=== PATIENT | male | born 1995 | race African-American/Black ===

== ENCOUNTER 2017-02-28 19:19 | Inpatient (IN) | payer OTHER ==
[~2017-02-28] VITALS: Ht 190.5 cm; Wt 73.9 kg
[2017-02-28] MEDS ORDERED: SODIUM CHLORIDE 0.9% 1,000 ML IV ONE (19:54)
[2017-02-28] MEDS ORDERED: ONDANSETRON HCL 4MG/2ML VIAL IV STA (19:54)
[2017-02-28] MEDS ORDERED: PANTOPRAZOLE 80 MG in SODIUM CHLORIDE 0.9% 100 ML IV SCH ×2 (20:00→20:15)
[2017-02-28] MEDS ORDERED: PANTOPRAZOLE SODIUM 40 MG/VIAL IV ONE (20:00)
[2017-02-28] MEDS ORDERED: TETANUS, DIPHTHERIA, PERTUSSIS VAC/PF 0.5ML (>7YR OLD) IM ONE (20:00)
[2017-02-28 20:52] LABS: BASOPHILS % 0.4 % (0.0-2.0); EOSINOPHILS % 0.5 % (0.0-5.0); HEMATOCRIT. 41.6 % (42.0-52.0); HEMOGLOBIN. 13.8 g/dL (14.0-18.0); LYMPHOCYTES % 19.7 % (20.0-50.0); MEAN CORPUSCULAR VOLUME 87.8 fL (80.0-94.0); MEAN PLATELET VOLUME 9.3 fl (7.4-10.4); NEUTROPHILS % 69.4 % (40.0-76.0); PLATELET 187 x1000/uL (130-400); RED BLOOD CELL COUNT 4.74 mill/uL (4.7-6.1); RED CELL DISTRIBUTION WIDTH 13.2 % (11.6-14.6)
[2017-02-28 21:00] LABS: CHLORIDE 105 mEq/L (98-107)
[2017-02-28 21:06] LABS: CLARITY URINE CLEAR (CLEAR); COLOR URINE YELLOW (YELLOW); GLUCOSE URINE NEGATIVE (NEGATIVE); KETONES URINE NEGATIVE (NEGATIVE); LEUKOCYTE ESTERASE URINE NEGATIVE (NEGATIVE); NITRITE URINE NEGATIVE (NEGATIVE); OCCULT BLOOD URINE NEGATIVE (NEGATIVE); PROTEIN URINE NEGATIVE (NEGATIVE); SPECIFIC GRAVITY URINE 1.024 (1.005-1.030)
[2017-02-28 21:07] LABS: CARBON DIOXIDE 28 mEq/L (21-32); ETHANOL BLOOD < 10 mg/dL; TROPONIN I < 0.02 ng/mL (0.00-0.04)
[2017-02-28 21:11] LABS: CREATINE KINASE 343 IU/L (39-308)
[2017-02-28 21:16] LABS: *AMPHETAMINES SCREEN URINE NEGATIVE (NEGATIVE); *BARBITURATES SCREEN URINE NEGATIVE (NEGATIVE); *BENZODIAZEPINES SCREEN URINE NEGATIVE (NEGATIVE); *COCAINE SCREEN URINE NEGATIVE (NEGATIVE); CANNABINOID URINE SCREEN NEGATIVE (NEGATIVE); METHADONE URINE SCREEN NEGATIVE (NEGATIVE); OPIATES URINE SCREEN NEGATIVE (NEGATIVE); PHENCYCLIDINE URINE SCREEN NEGATIVE (NEGATIVE)
[2017-02-28 21:19] LABS: PHENOBARBITAL < 2.1 ug/mL (15.0-40.0)
[2017-02-28 21:21] LABS: VALPROIC ACID < 3.0 ug/mL (50-100)
[2017-02-28 21:22] LABS: CARBAMAZEPINE < 0.5 ug/mL (4-12)
[2017-02-28 21:23] LABS: PHENYTOIN < 10.0 ug/mL (10-20)
[2017-02-28] MEDS ORDERED: CALCIUM GLUCONATE 100MG/ML 10ML VIAL IV NR (23:21)
[2017-03-01] VITALS (8 sets, daily range): BP systolic 131–156; BP diastolic 61–87
[2017-03-01] MEDS ORDERED: ONDANSETRON HCL 4MG/2ML VIAL IV ONE
[2017-03-01] MEDS ORDERED: DIPHENHYDRAMINE 50MG/ML VIAL IV PRN (02:00)
[2017-03-01] MEDS ORDERED: LORAZEPAM 2MG/ML CPJ IV PRN (02:00)
[2017-03-01] MEDS ORDERED: NITROGLYCERIN 0.4MG TABLET SL SL PRN (02:00)
[2017-03-01] MEDS ORDERED: ACETAMINOPHEN 325MG TABLET PO PRN (02:00)
[2017-03-01] MEDS ORDERED: IPRATROPIUM/ALBUTEROL 0.5-3(2.5)MG/3ML NEB INH PRN (02:00)
[2017-03-01] MEDS ORDERED: MAGNESIUM/ALUMINUM HYDROXIDE/SIMETHICONE 30ML UDC PO PRN (02:00)
[2017-03-01] MEDS ORDERED: DOCUSATE SODIUM 100MG CAPSULE PO PRN (02:00)
[2017-03-01] MEDS ORDERED: HALOPERIDOL LACTATE 5MG/ML VIAL IM PRN (02:00)
[2017-03-01] MEDS ORDERED: ONDANSETRON HCL 4MG/2ML VIAL IV PRN (02:00)
[2017-03-01] MEDS ORDERED: CLONIDINE 0.1MG TABLET PO PRN (02:00)
[2017-03-01] MEDS: DEXT 5%/LACTATED RINGERS 1,000 ML IV SCH ×2 (02:52→14:30)
[2017-03-01 06:17] LABS: CREATINE KINASE 346 IU/L (39-308); TROPONIN I < 0.02 ng/mL (0.00-0.04)
[2017-03-01] MEDS ORDERED: NA PHOS,M-B/NA PHOS,DI-BA ENEMA 118ML PR PRN (09:00)
[2017-03-01] MEDS ORDERED: LAMO25TA4 PO (10:21)
[2017-03-01] MEDS ORDERED: LEVETIRACETAM 500 MG in SODIUM CHLORIDE 0.9% 100 ML IV SCH (14:00)
[2017-03-01 15:36] LABS: CREATINE KINASE 307 IU/L (39-308); CREATINE KINASE MB FRACTION 1.2 ng/mL (0.5-3.6); TROPONIN I < 0.02 ng/mL (0.00-0.04)
[2017-03-01] MEDS ORDERED: PANTOPRAZOLE SODIUM 40 MG/VIAL IV SCH (18:00)
== END 2017-03-01 21:33 | disposition short-term general hospital (02) | DRG 101 ==
LOC: ER 19:25 → 5EST 23:25 → EDBEDREQ 03-01 01:41 → EDBEDREQTM 03-01 01:41 → SUPCPDRO 03-01 01:46 → ENRESERV 03-01 02:47
PROVIDERS: ADMIT Internal Medicine; ATTEND Internal Medicine
DX: G40.909 Epilepsy, unspecified, not intractable, without status epilepticus (principal); K92.0 Hematemesis; K92.2 Gastrointestinal hemorrhage, unspecified; F41.9 Anxiety disorder, unspecified; K76.9 Liver disease, unspecified; Z91.14 Patient's other noncompliance with medication regimen
CPT/HCPCS: 36415; 70450; 70551; 71010; 80053; 80156; 80165; 80184; 80185; 80305; 80307; 80329; 81001; 82550; 82553; 83036; 83690; 83880; 84484; 85025; 90471; 90715; 93005; 96361; 96365; 96366; 96375; 99291; C9113; G0482; J0610; J1953; J2405; J7030; J7050